=== PATIENT | male | born 1970 | race Two or more races ===

== ENCOUNTER 2017-12-29 14:05 | Emergency (ER) | payer BC, OTHER ==
[~2017-12-29] VITALS: Ht 180.3 cm; Wt 94.3 kg
[2017-12-29 14:52] VITALS: BP 141/71
[2017-12-29] MEDS ORDERED: KETOROLAC TROMETH 60MG/2ML VIAL IM ONE (15:15)
[2017-12-29] MEDS ORDERED: METHOCARBAMOL 500 MG TAB PO ONE (15:15)
== END 2017-12-29 16:22 | disposition home or self-care (01) ==
LOC: ER 14:10
DX: M54.9 Dorsalgia, unspecified (principal); M79.10 Myalgia, unspecified site; G89.29 Other chronic pain
CPT/HCPCS: 72100; 96372; 99283; J1885